=== PATIENT | female | born 1950 | race Caucasian/White ===

== ENCOUNTER 2016-10-12 05:39 | Outpatient (CLI) | payer MEDICARE ==
[~2016-10-12] VITALS: Ht 167.6 cm; Wt 83.0 kg
[~2016-10-12 05:39] MED LIST: LSNP20T PO; MESA1.2T PO
[2016-10-12] MEDS ORDERED: IMIP25TA4 PO (09:05)
== END 2016-10-12 09:41 ==
LOC: PREOP 05:39
PROVIDERS: ATTEND Surgery
DX: Z01.818 Encounter for other preprocedural examination (principal); L72.3 Sebaceous cyst

== ENCOUNTER 2016-10-19 06:08 | Day surgery (SDC) | payer MEDICARE, OTHER ==
[~2016-10-19] VITALS: Ht 167.6 cm; Wt 83.0 kg
[~2016-10-19 06:08] MED LIST changes: +IMIP25TA4 PO
[2016-10-19] MEDS ORDERED: LACTATED RINGERS 1,000 ML IV PRN (06:32)
[2016-10-19] MEDS ORDERED: VANCOMYCIN 1000 MG/VIAL ONE (06:43)
[2016-10-19] MEDS ORDERED: NS (IVPB) 250 ML ONE (06:43)
[2016-10-19 07:08] VITALS: BP 146/79
[2016-10-19] MEDS ORDERED: BUP/EPI 0.25% 1:200,000 (MARCAINE) 30 ML VIAL ONE (07:14)
[2016-10-19] MEDS ORDERED: PROPOFOL INJECTION 50 ML IV ONE (07:20)
[2016-10-19] MEDS ORDERED: MIDAZOLAM 2 MG/2 ML (VERSED) VIAL ONE (07:20)
[2016-10-19] MEDS ORDERED: VANCOMYCIN 1 GM/NS 250 ML IVPB IV ONE ×2 (07:45)
--- NOTE | 2016-10-19 07:46 | Progress Note-Pre Operative ---
Pre-Operative Progress Note H&P Reviewed The H&P was reviewed, patient examined and no changes noted. Date H&P Reviewed: October 19, 2016 Time H&P Reviewed: 07:45 Pre-Operative Diagnosis: Lionel.Cyst-R scapular region TEJAS ONTIVEROS MD October 19, 2016 7:46 am
--- NOTE | 2016-10-19 07:48 | History & Physicial ---
History of Present Illness History of Present Illness Reason for visit/HPI For excision of a sebaceous cyst-Right scapular region Date of Admission I consulted on this patient on 10/19/16 07:46 Attending Physician Tejas Ontiveros MD Admitting Physician Virgil Tobias - Chc Of Consult Allergies and Home Medications Allergies Coded Allergies: Penicillins (Verified Adverse Reaction, Intermediate, SWELLING, SOA, ) codeine (Verified Adverse Reaction, Intermediate, SWELLING, SOA, 11/05/12) Home Medications Imipramine HCl 25 Mg Tablet, 25 MG PO HS, (Reported) Lisinopril 20 Mg Tab, 20 MG PO DAILY, (Reported) Past [place]-Thhbxd-Zalmju Hx Patient Social History Employed/Student: employed Alcohol Use: Denies Use Recreational Drug Use: No Smoking Status: Never a Smoker Recent Foreign Travel: No Contact w/other who traveled: No Recent Hopitalizations: No Recent Infectious Disease Expo: No Seasonal Allergies Seasonal Allergies: Yes Surgeries HX Surgeries: Yes (3 BREAST BXS) Surgeries: Tubal Ligation Respiratory Hx Respiratory Disorders: No Cardiovascular Hx Cardiovascular Disorders: Yes Cardiac Disorders: Hypertension Neurological Hx Neurological Disorders: No Reproductive System Hx Reproductive Disorders: No Genitourinary Hx Genitourinary Disorders: No Gastrointestinal Hx Gastrointestinal Disorders: Yes Gastrointestinal Disorders: Colitis, Irritable Bowel Musculoskeletal Hx Musculoskeletal Disorders: No Endocrine Hx Endocrine Disorders: No HEENT HX ENT Disorders: No Loss of Vision: Bilateral Hearing Impairment: Denies Cancer Hx Cancer: No Psychosocial Hx Psychiatric Problems: No Integumentary HX Skin/Integumentary Disorder: No Blood Transfusions Hx Blood Disorders: No Family Medical History Significant Family History: Heart Disease, Cancer, Diabetes Constitutional: no symptoms reported EENTM: no symptoms reported Respiratory: no symptoms reported Cardiovascular: no symptoms reported Gastrointestinal: no symptoms reported Genitourinary: no symptoms reported : No Musculoskeletal: no symptoms reported Skin: no symptoms reported, see HPI Physical Exam Vital Signs Vital Sign - Last 12Hours 10/19/16 07:08 Temp 97.9 Pulse 65 Resp 16 B/P (MAP) 146/79 Pulse Ox 97 Capillary Refill : General Appearance: No Apparent Distress Neck: Normal Inspection Respiratory: Lungs Clear Cardiovascular: Regular Rate, Rhythm Skin: Other Comments 2 cm sebaceous cyst-R scapular region Assessment/Plan Assessment and Plan Lionel cyst-right scapular region-for excision Problems: Clinical Quality Measures DVT/VTE Risk/Contraindication: Risk Factor Score Per Nursin RFS Level Per Nursing on Admit: 4+=Very High TEJAS ONTIVEROS MD October 19, 2016 7:48 am
[2016-10-19] MEDS ORDERED: LACTATED RINGERS 1,000 ML IV ONE (08:18)
--- NOTE | 2016-10-19 08:25 | Progress Note-Post Operative ---
Post-Operative Progess Note Surgeon (s)/Internet Assessor (s) Surgeon TEJAS ONTIVEROS MD Internet Assessor: not applicable Pre-Operative Diagnosis Lionel.Cyst-R scapular region Post-Operative Diagnosis same Procedure & Operative Findings Date of Procedure 10/19/16 Procedure Performed/Findings excision with primary closure Anesthesia Type sedation with local Estimated Blood Loss Estimated blood loss (mL): minimal Specimens/Packing Specimens Removed sebaceous cyst TEJAS ONTIVEROS MD October 19, 2016 8:25 am
[2016-10-19] MEDS ORDERED: TRAM50TA2 PO (08:26)
--- NOTE | 2016-10-19 08:27 | Discharge Inst-Simple/Standard ---
Discharge Inst-Standard Discharge Medications New, Converted or Re-Newed RX: RX on Chart Patient Instructions/Follow Up Plan of Care/Instructions/FU: dressing off in 48 hours. Follow-up with my nurse in 10 days for suture removal Activity as Tolerated: Yes Discharge Diet: No Restrictions TEJAS ONTIVEROS MD October 19, 2016 8:26 am
[2016-10-19 09:00] VITALS: BP 130/80
[2016-10-19 09:30] VITALS: BP 149/78
--- NOTE | 2016-10-19 10:00 | OPERATIVE REPORT ---
DATE OF SERVICE: 10/19/2016 PREOPERATIVE DIAGNOSIS: 2 cm sebaceous cyst - right scapular region. POSTOPERATIVE DIAGNOSIS: 2 cm sebaceous cyst - right scapular region. OPERATION: Excision. SURGEON: Tejas Ontiveros MD ANESTHESIA: Sedation with local. BLOOD LOSS: Minimal. FLUIDS: 800 mL of crystalloid. TYPE OF WOUND: Type II (clean - contaminated). INDICATION FOR PROCEDURE: This lady presented with a 2 cm sebaceous cyst over the right scapular region with intermittent drainage. She was offered formal excision under sedation. Informed consent was obtained after reviewing operative details and complications of postoperative wound infection, hematoma and recurrence. DESCRIPTION OF PROCEDURE: She was placed in left lateral decubitus position, to achieve reasonable exposure of the involved region. A gram of vancomycin was administered intravenously as prophylaxis against wound infection. Sedation was achieved by our INCLUSION TEACHER. After adequate antiseptic preparation, local anesthesia was achieved using 0.25% Marcaine with epinephrine. An elliptical incision about 4 cm long was made in a transverse fashion and the cyst excised intact. The incision was then closed using 3-0 PDS for the subcutaneous tissue and 4-0 nylon for skin, in a continuous fashion. A nonadherent dressing was then applied. She tolerated the procedure well and was taken to recovery room in a stable condition. [place], sponges and instruments were correct at the end of the operation. Job ID: [id number] DocumentID: [id number] Dictated Date: 10/19/2016 08:22:25 Political Science Research Assistant Date: 10/19/2016 08:47:28 Dictated By: TEJAS ONTIVEROS MD [facility]
== END 2016-10-19 09:43 | disposition home or self-care (01) ==
LOC: SDC 06:08
PROVIDERS: ATTEND Surgery
DX: L72.3 Sebaceous cyst (principal); I10 Essential (primary) hypertension; Z79.899 Other long term (current) drug therapy
CPT/HCPCS: 87081